=== PATIENT | female | born 1980 | race American Indian/Alaskan Native ===

== ENCOUNTER 2018-09-06 11:00 | Outpatient (CLI) | payer OTHER | END 2018-09-06 11:01 | disposition home or self-care (01) | LOC: SLR 11:00 | PROVIDERS: ATTEND Otolaryngology | DX: G47.33 Obstructive sleep apnea (adult) (pediatric) (principal); R40.0 Somnolence; R06.83 Snoring | CPT/HCPCS: 95811 ==

== ENCOUNTER 2018-10-16 06:15 | Day surgery (SDC) | payer OTHER ==
[2018-10-16] MEDS ORDERED: WATER FOR IRRIG STERILE IR ONE (08:01)
--- NOTE | 2018-10-16 08:14 | Anesthesia Day of Surgery ---
Anesthesia Day of Surgery - Day of Surgery Patient Examined: Yes Patient H&P Reviewed: Yes Patient is NPO: Yes Beta Blockers: Yes
--- NOTE | 2018-10-16 08:14 | Anesthesia Consultation ---
Anesthesia Consult and Med Hx Date of service: 10/16/18 - Airway Anesthetic Teeth Evaluation: Good ROM Head & Neck: Adequate Mental/Hyoid Distance: Adequate Mallampati Class: Class III Intubation Access Assessment: Possibly Difficult - Pulmonary Exam CTA: Yes - Cardiac Exam Cardiac Exam: No Murmur - Pre-Operative Health Status ASA Pre-Surgery Classification: ASA3 Proposed Anesthetic Plan: MAC - Cardiovascular System Hx Hypertension: Yes Hx Cardia Arrhythmia: Yes - Other Systems Hx Obesity: Yes
[2018-10-16] MEDS ORDERED: NACL 0.9% 1000 ML 1,000 ML ONE (08:38)
[2018-10-16] MEDS ORDERED: NACL 0.9% 1000 ML 1,000 ML IV SCH (09:00)
[2018-10-16] MEDS ORDERED: DIPRIVAN 10 MG/ML IV ONE (09:05)
[2018-10-16] MEDS ORDERED: VERSED ONE (09:05)
[2018-10-16 10:41] VITALS: BP 139/92
== END 2018-10-16 06:16 | disposition home or self-care (01) ==
LOC: GIO 06:15
PROVIDERS: ATTEND Specialist
DX: K20.9 Esophagitis, unspecified (principal); K44.9 Diaphragmatic hernia without obstruction or gangrene; K30 Functional dyspepsia; E66.01 Morbid (severe) obesity due to excess calories; E78.00 Pure hypercholesterolemia, unspecified; I42.9 Cardiomyopathy, unspecified; I10 Essential (primary) hypertension; G47.30 Sleep apnea, unspecified; K21.9 Gastro-esophageal reflux disease without esophagitis; Z98.890 Other specified postprocedural states; Z87.891 Personal history of nicotine dependence; Z68.38 Body mass index [BMI] 38.0-38.9, adult; Z79.899 Other long term (current) drug therapy; Z88.8 Allergy status to other drugs, medicaments and biological substances
CPT/HCPCS: 43235; 81025; J2250; J2704; J7030

== ENCOUNTER 2018-10-23 05:44 | Observation (INO) | payer OTHER ==
[2018-10-23] MEDS ORDERED: NORCO PO PRN (05:49)
[2018-10-23] MEDS ORDERED: TRANSDERM-SCOP TD SCH (06:00)
[2018-10-23] MEDS ORDERED: ANCEF/STERILE WATER 2 GM/20 ML 2 GM/20 ML SYRINGE IV NR (06:00)
[2018-10-23] MEDS ORDERED: LOVENOX SUB-Q NR (06:00)
[2018-10-23] MEDS ORDERED: FLAGYL 500 MG/100 ML 500 MG/100 ML BAG IV NR (06:00)
[2018-10-23] MEDS: LACTATED RINGERS 1,000 ML IV SCH ×3 (06:55→18:19)
[2018-10-23] MEDS ORDERED: VERSED IV NR (07:00)
[2018-10-23] MEDS ORDERED: MARCAINE-EPI 0.5%-1:200,000 INFILTRATI ONE ×2 (07:07→08:42)
[2018-10-23] MEDS ORDERED: XYLOCAINE 1% 20 mL ONE (07:07)
[2018-10-23] MEDS ORDERED: XYLOCAINE MPF 2% ONE (07:27)
[2018-10-23] MEDS ORDERED: ZEMURON IV ONE (07:27)
[2018-10-23] MEDS ORDERED: SUBLIMAZE ONE (07:27)
[2018-10-23] MEDS ORDERED: DIPRIVAN 10 MG/ML IV ONE (07:28)
--- NOTE | 2018-10-23 07:38 | Anesthesia Day of Surgery ---
Anesthesia Day of Surgery - Day of Surgery Patient Examined: Yes Patient H&P Reviewed: Yes Patient is NPO: Yes
--- NOTE | 2018-10-23 07:38 | Anesthesia Consultation ---
Anesthesia Consult and Med Hx Date of service: 10/23/18 - Airway Anesthetic Teeth Evaluation: Good ROM Head & Neck: Adequate Mental/Hyoid Distance: Adequate Mallampati Class: Class II Intubation Access Assessment: Probably Good - Pulmonary Exam CTA: Yes - Cardiac Exam Cardiac Exam: RRR - Pre-Operative Health Status ASA Pre-Surgery Classification: ASA3 Proposed Anesthetic Plan: General - Pulmonary Hx Smoking: Yes (former smoker quit 10yrs ago) Hx Respiratory Symptoms: No SOB: Yes (neg cardiac/pulmonary work up) Hx Sleep Apnea: Yes (compliant with CPAP) - Cardiovascular System Hx Hypertension: Yes Hx Heart Attack/AMI: No Hx Cardia Arrhythmia: Yes (a-fib (took atenolol and diltiazem)) - Central Nervous System CVA: No Hx Psychiatric Problems: No - Gastrointestinal Hx Gastroesophageal Reflux Disease: Yes (controlled) - Endocrine Hx Renal Disease: No Hx Liver Disease: No Hx Insulin Dependent Diabetes: No Hx Non-Insulin Dependent Diabetes: No Hx Thyroid Disease: No - Other Systems Hx Alcohol Use: Yes Hx Obesity: Yes - Additional Comments Anesthesia Medical History Comments: No hx anesthetic complications.
[2018-10-23] MEDS ORDERED: SUBLIMAZE IV PRN (07:41)
[2018-10-23 08:06] LABS: Bacteria,Urine 1+ /HPF (Negative); Bilirubin,Urine NEG (Negative); Blood,Urine NEG (Negative); Color,Urine Amber (Yellow); Mucus,Urine 2+ /HPF; Urobilinogen,Urine < 2.0 mg/dL (<2.0)
[2018-10-23 08:16] LABS: INR 0.95 (0.87-1.13)
[2018-10-23 08:17] LABS: Partial Thromboplastin Time 23.7 Sec. (24.2-36.6)
[2018-10-23] MEDS ORDERED: XYLOCAINE 1% 20 mL INFILTRATI ONE (08:42)
[2018-10-23] MEDS ORDERED: NACL 0.9% IR ONE ×2 (08:43)
[2018-10-23] MEDS ORDERED: BLOXIVERZ ONE (09:01)
[2018-10-23] MEDS ORDERED: ROBINUL ONE ×3 (09:01)
[2018-10-23] MEDS ORDERED: DECADRON ONE (09:08)
[2018-10-23] MEDS ORDERED: ZOFRAN ONE (09:08)
[2018-10-23] MEDS ORDERED: DILAUDID ONE (09:10)
[2018-10-23] MEDS: LASIX PO SCH (11:38)
[2018-10-23] MEDS: MYLICON PO PRN ×2 (11:38→17:28)
[2018-10-23] MEDS: TENORMIN PO SCH (11:39)
[2018-10-23] MEDS: REGLAN IV PRN ×2 (11:39→21:10)
[2018-10-23] MEDS: MORPHINE IV PRN ×2 (11:52→15:41)
--- NOTE | 2018-10-23 12:00 | Post Anesthesia Evaluation ---
- Post Anesthesia Evaluation Patient Participated: Yes Airway Patent: Yes Stable Respiratory Function: Yes Nausea/Vomiting: No Temp > 96.8F: Yes Pain Manageable: Yes Adequeate Hydration: Yes Anesthesia Complications: No
[2018-10-23] MEDS: CARDIZEM PO SCH (17:28)
[2018-10-23] MEDS: ZOFRAN IV PRN (17:34)
[2018-10-23] MEDS: DILAUDID IV PRN ×3 (18:19→21:14)
[2018-10-23] MEDS: APRESOLINE IV PRN (21:16)
[2018-10-24] MEDS: LACTATED RINGERS 1,000 ML IV SCH ×2 (01:22→07:16)
[2018-10-24] MEDS: CARDIZEM PO SCH ×2 (01:23→07:20)
[2018-10-24] MEDS: DILAUDID IV PRN (01:24)
[2018-10-24] MEDS: ZOFRAN IV PRN ×2 (01:24→07:56)
[2018-10-24] MEDS: MYLICON PO PRN ×2 (02:16→07:55)
[2018-10-24 05:10] LABS: Hematocrit 37.2 % (30.3-42.9); Hemoglobin 12.7 gm/dl (10.1-14.3); Lymphocytes # (Auto) 1.6 K/mm3 (1.2-5.4); Lymphocytes % (Auto) 11.3 % (13.4-35.0); Mean Corpuscular HGB Conc 34 % (30-34); Mean Corpuscular Volume 88 fl (79-97); Monocytes # (Auto) 1.1 K/mm3 (0.0-0.8); Monocytes % (Auto) 7.8 % (0.0-7.3); Platelet Count 224 K/mm3 (140-440); Red Blood Count 4.22 M/mm3 (3.65-5.03); Red Cell Distribution Width 14.2 % (13.2-15.2)
[2018-10-24 05:27] LABS: BUN/Creatinine Ratio 7; Blood Urea Nitrogen 5 mg/dL (7-17); Calcium 9.3 mg/dL (8.4-10.2); Hemolysis Index 1
--- NOTE | 2018-10-24 06:59 | Discharge Summary ---
Providers - Providers Date of Admission: 10/23/18 05:49 Date of discharge: 10/24/18 Attending physician: CHRISTIANNE HERRERA Primary care physician: ROXANNA DAVIS Hospitalization Reason for admission: postop Condition: Good Procedures: 10/23/18: Laparoscopic sleeve gastrectomy Hospital course: 38F admitted after her operation for routine postop care. She had no major issues and was managed on the general surgical floor. She had minor nausea, improved in am. Patient tolerated CLD, ambulated, and was dc POD1. Disposition: DC-01 TO HOME OR SELFCARE Core Measure Documentation - Palliative Care Palliative Care/ Comfort Measures: Not Applicable - Core Measures Any of the following diagnoses?: none - VTE Discharge Requirements Deep Vein Thrombosis/Pulmonary Embolism Present on Admission: No - Acute CO Discharge Requirements Aspirin at discharge: No Reason for no aspirin on DC: Surgical contraindication - Heart Failure Discharge Requirements JENN/ARB for LVSD if EF <40%: Not Applicable - Stroke Discharge Requirements Statin for LDL = or >70 mg/dl on DC: Not Applicable Exam - Physical Exam Narrative exam: Gen: AAO, NAD Heart: RRR Lungs: CTAB Abd: MO, soft, ND, NT. Bandages c/d/i. - Constitutional Vitals: Temp Pulse Resp BP Pulse Ox 97.9 F 90 18 159/89 97 10/24/18 05:06 10/24/18 05:06 10/24/18 05:06 10/24/18 05:06 10/24/18 05:06 Plan Diet: clear liquids Wound: keep clean and dry Special Instructions: no heavy lifting Additional Instructions: mike Herrera as scheduled Follow up with: ROXANNA DAVIS MD [Primary Care Provider] - 7 Days
[2018-10-24 07:54] VITALS: BP 172/100
[2018-10-24] MEDS: LASIX PO SCH ×2 (08:07→10:14)
[2018-10-24] MEDS: TENORMIN PO SCH ×2 (08:07→10:15)
[2018-10-24] MEDS: APRESOLINE IV PRN (08:08)
[2018-10-24] MEDS ORDERED: LOVENOX SUB-Q SCH (10:00)
== END 2018-10-24 10:54 | disposition home or self-care (01) ==
LOC: OR 05:44 → 3A 05:49 → 3B-SURG 10:38
PROVIDERS: ADMIT Specialist; ATTEND Specialist
DX: E66.01 Morbid (severe) obesity due to excess calories (principal); K44.9 Diaphragmatic hernia without obstruction or gangrene; K21.9 Gastro-esophageal reflux disease without esophagitis; E78.5 Hyperlipidemia, unspecified; I10 Essential (primary) hypertension; G47.30 Sleep apnea, unspecified; I48.0 Paroxysmal atrial fibrillation
CPT/HCPCS: 36415; 43280; 43775; 80048; 81001; 85025; 85610; 85730; 88307; 96372; 96374; 96375; 96376; A4217; G0378; J0360; J0690; J1100; J1170; J1650; J2250; J2270; J2405; J2704; J2710; J2765; J3010; J7120